=== PATIENT | female | born 1990 | race Caucasian/White ===

== ENCOUNTER 2019-08-13 09:28 | Emergency (ER) | payer SELFPAY ==
[2019-08-13 09:29] VITALS: BP 136/90
--- NOTE | 2019-08-13 10:52 | PHYS DOC ---
Adult General Chief Complaint Chief Complaint: ANXIETY/PANIC ATTACK HPI HPI 28 yo female presents via EMS with shortness of breath, chest tightness, and general anxiety. Patient believes she might be having an anxiety attack she's only had one previously. She was at work having a normal day when she began to feel more rapid breathing, shaky, and chest tightening. This led to further rapid breathing and a general sense of being scared. EMS was called. When the patient arrived, she was still expecting the symptoms. During my interview, she is feeling much better. She leaves this was just a panic attack. Her symptoms have resolved. She is still sleepy, but her other symptoms are gone. He has no other complaints. Review of Systems Review of Systems Constitutional: Denies fever or chills [] Eyes: Denies change in visual acuity, redness, or eye pain [] HENT: Denies nasal congestion or sore throat [] Respiratory: Denies cough or shortness of breath [] Cardiovascular: No additional information not addressed in HPI [] GI: Denies abdominal pain, nausea, vomiting, bloody stools or diarrhea [] : Denies dysuria or hematuria [] Musculoskeletal: Denies back pain or joint pain [] Integument: Denies rash or skin lesions [] Neurologic: Denies headache, focal weakness or sensory changes [] Endocrine: Denies polyuria or polydipsia [] All other systems were reviewed and found to be within normal limits, except as documented in this note. Physical Exam Physical Exam Constitutional: Well developed, well nourished, no acute distress, non-toxic appearance. [] HENT: Normocephalic, atraumatic, bilateral external ears normal, oropharynx moist, no oral exudates, nose normal. [] Eyes: PERRLA, EOMI, conjunctiva normal, no discharge. [] Neck: Normal range of motion, no tenderness, supple, no stridor. [] Cardiovascular:Heart rate regular rhythm, no murmur [] Lungs & Thorax: Bilateral breath sounds clear to auscultation [] Abdomen: Bowel sounds normal, soft, no tenderness, no masses, no pulsatile masses. [] Skin: Warm, dry, no erythema, no rash. [] Back: No tenderness, no CVA tenderness. [] Extremities: No tenderness, no cyanosis, no clubbing, ROM intact, no edema. [] Neurologic: Alert and oriented X 3, normal motor function, normal sensory function, no focal deficits noted. [] Psychologic: Affect normal, judgement normal, mood mildly anxious[] EKG EKG [] Radiology/Procedures Radiology/Procedures [] Course & Med Decision Making Course & Med Decision Making Pertinent Labs and Imaging studies reviewed. (See chart for details) Patient is feeling much better at this time. She tells me that all of her symptoms have gone away. She does not believe that she needs a workup. I have offered her to do labs and further evaluation if she would like, but she does not believe that necessary. She will decide to go home and rest. I believe that this is a reasonable thing to do. If her condition worsens she'll return to the emergency room. She is stable for discharge at this time. [] Dragon Disclaimer Dragon Disclaimer This electronic medical record was generated, in whole or in part, using a voice recognition dictation system. Departure Departure: Impression: Primary Impression: Encounter for medical screening examination Disposition: 01 HOME/RESIDENCE PRIOR TO ADM Condition: STABLE Referrals: DIANA MOSES (PCP) Patient Instructions: Anxiety and Panic Attacks, [id number] TING CHAHAL DO Aug 13, 2019 10:52
== END 2019-08-13 10:55 | disposition home or self-care (01) ==
LOC: ER 09:28
DX: F41.1 Generalized anxiety disorder (principal)
CPT/HCPCS: 99283

== ENCOUNTER 2020-01-17 21:26 | Emergency (ER) | payer OTHER ==
[~2020-01-17] VITALS: Ht 157.5 cm; Wt 68.5 kg
[2020-01-17] MEDS ORDERED: IV NORMAL SALINE 1,000ML 1,000 ML IV ONE (22:00)
--- NOTE | 2020-01-17 22:01 | PHYS DOC ---
Past History Past Medical History: No Pertinent History Past Surgical History: No Surgical History Alcohol Use: Rarely Drug Use: None General Adult EDM: Chief Complaint: LOWER EXT PAIN HPI: HPI: 29-year-old female presents with a left lower leg pain. She has had pain for 4 to 5 days. The patient has had varicose veins for her whole life. She noticed a protruding vein in the posterior of this knee a couple days ago. It is gotten more painful. It is tender to the touch. The patient is 6 weeks . She is also a smoker. She does not personally have a history of DVT, but her mother has had a DVT. Earlier this evening after she got out of her bathtub, the patient had her lower extremity feel numb for several minutes. It was a [id number] feeling. It faded on its own. She is here to make sure there is not a more serious problem. Review of Systems: Review of Systems: Constitutional: Denies fever or chills Eyes: Denies change in visual acuity HENT: Denies nasal congestion or sore throat Respiratory: Denies cough or shortness of breath Cardiovascular: Denies chest pain or edema GI: Denies abdominal pain, nausea, vomiting, bloody stools or diarrhea : Denies dysuria Musculoskeletal: Left lower leg pain Integument: Denies rash Neurologic: Denies headache, focal weakness or sensory changes Endocrine: Denies polyuria or polydipsia Lymphatic: Denies swollen glands Psychiatric: Denies depression or anxiety Heart Score: Risk Factors: Risk Factors: DM, Current or recent (<one month) smoker, HTN, HLP, family history of CAD, obesity. Risk Scores: Score 0 - 3: 2.5% MACE over next 6 weeks - Discharge Home Score 4 - 6: 20.3% MACE over next 6 weeks - Admit for Clinical Observation Score 7 - 10: 72.7% MACE over next 6 weeks - Early Invasive Strategies Current Medications: Current Meds: Current Medications Medications (Trade) Dose Ordered Sig/Laverne Start Time Stop Time Status Last Admin Dose Admin Sodium Chloride 1,000 ml @ 1,000 mls/hr 1X ONCE 01/17/20 22:00 01/17/20 22:59 UNV Allergies: Allergies: Allergies Coded Allergies Type Severity Reaction Last Updated Verified No Known Drug Allergies 01/17/20 No Physical Exam: PE: Constitutional: Well developed, well nourished, no acute distress, non-toxic appearance. [] HENT: Normocephalic, atraumatic, bilateral external ears normal, oropharynx moist, no oral exudates, nose normal. [] Eyes: PERRLA, EOMI, conjunctiva normal, no discharge. [] Neck: Normal range of motion, no tenderness, supple, no stridor. [] Cardiovascular:Heart rate regular rhythm, no murmur [] Lungs & Thorax: Bilateral breath sounds clear to auscultation [] Abdomen: Bowel sounds normal, soft, no tenderness, no masses, no pulsatile masses. [] Skin: 4 cm x 4 cm varicose vein complex of the left posterior knee, tender to palpation, no warmth or erythema. [] Back: No tenderness, no CVA tenderness. [] Extremities: No tenderness, no cyanosis, no clubbing, ROM intact, no edema. [] Neurologic: Alert and oriented X 3, normal motor function, normal sensory function, no focal deficits noted. [] Psychologic: Affect normal, judgement normal, mood normal. [] EKG: EKG: [] Radiology/Procedures: Radiology/Procedures: [] Impressions: Examination: Unilateral venous Doppler. Grayscale, color Doppler and spectral analysis were obtained. Indication: Leg swelling Findings: There is normal venous flow and compressibility of left common femoral vein, femoral vein, popliteal vein, and visualized proximal calf veins. Varicose veins are seen, grossly patent Impression: No evidence for deep vein thrombosis of left lower extremity from the level of the calf veins to the groins. Electronically signed by: Jeremiah Quinonez MD (01/17/2020 11:17 PM) [facility] DICTATED AND SIGNED BY: JEREMIAH QUINONEZ MD DATE: 01/17/20 2694 CC: TING CHAHAL DO; PCP,UNKNOWN ~ Course & Med Decision Making: Course & Med Decision Making Pertinent Labs and Imaging studies reviewed. (See chart for details) The patient's lower extremity ultrasound is negative for DVT. She does have varicose veins, but they appear to be patent. Her pain is likely due to these varicose veins. I have given her 2 mg of morphine and a [place] 02/01/2025 in the ER. I will discharge her with a prescription for [place] 5/325. The patient's labs are significant for hemoglobin of 10.6. I have no previous for comparison. Her potassium is 3.0. I have given her 40 mEq of oral replacement. She is stable for discharge at this time. [] Ubaldo Disclaimer: Ubaldo Disclaimer: This electronic medical record was generated, in whole or in part, using a voice recognition dictation system. Departure Departure: Impression: Primary Impression: Varicose vein of leg Qualified Codes: I83.812 - Varicose veins of left lower extremity with pain Additional Impression: Hypokalemia Disposition: HOME, SELF-CARE Condition: STABLE Referrals: PCP,UNKNOWN (PCP) Patient Instructions: Hypokalemia-Brief, Varicose Veins Scripts Hydrocodone Bit/Acetaminophen (NORCO 5-325 TABLET) 1 Each Tablet 1 TAB PO PRN Q6HRS PRN for PAIN, #14 TAB 0 Refills Prov: TING CHAHAL DO 01/17/20 TING CHAHAL DO Jan 17, 2020 22:00
[2020-01-17 22:41] LABS: BASO # 0.1 x10^3/uL (0.0-0.2); BASO % 1 % (0-3); EOS # 0.1 x10^3/uL (0.0-0.7); EOS % 1 % (0-3); HEMATOCRIT 31.1 % (36.0-47.0); HEMOGLOBIN 10.6 g/dL (12.0-15.5); LYMPH % 27 % (24-48); MEAN CORPUSCULAR HEMOGLOBIN 32 pg (25-35); MEAN CORPUSCULAR HGB CONC 34 g/dL (31-37); MEAN CORPUSCULAR VOLUME 95 fL (79-100); MONO # 0.6 x10^3/uL (0.0-1.1); MONO % 6 % (0-9); NEUT # 7.2 x10^3uL (1.8-7.7); NEUT % 65 % (31-73); PLATELET COUNT 261 x10^3/uL (140-400); RED BLOOD COUNT 3.28 x10^6/uL (3.50-5.40); RED CELL DISTRIBUTION WIDTH 13.2 % (11.5-14.5)
[2020-01-17] MEDS ORDERED: ONDANSETRON PF 4 MG/2 ML VIAL. IVP ONE (22:45)
[2020-01-17] MEDS ORDERED: MORPHINE SULFATE 2 MG/ML DISP.SYRIN. IV ONE (22:45)
[2020-01-17] MEDS ORDERED: HYDROcodone/APAP 5/325MG 1 TAB TABLET PO ONE (22:45)
[2020-01-17 22:54] LABS: ALBUMIN 2.9 g/dL (3.4-5.0); ALBUMIN/GLOBULIN RATIO 0.8 (1.0-1.7); CALCIUM 8.5 mg/dL (8.5-10.1); CREATININE 0.6 mg/dL (0.6-1.0); TOTAL BILIRUBIN 0.3 mg/dL (0.2-1.0); TOTAL PROTEIN 6.5 g/dL (6.4-8.2)
--- NOTE | 2020-01-17 23:20 | RAD ---
Examination: Unilateral venous Doppler. Grayscale, color Doppler and spectral analysis were obtained. Indication: Leg swelling Findings: There is normal venous flow and compressibility of left common femoral vein, femoral vein, popliteal vein, and visualized proximal calf veins. Varicose veins are seen, grossly patent Impression: No evidence for deep vein thrombosis of left lower extremity from the level of the calf veins to the groins. Electronically signed by: Jeremiah Quinonez MD (01/17/2020 11:17 PM) ROSY
[2020-01-17] MEDS ORDERED: HYDR-3165 PO (23:49)
[2020-01-17 23:51] LABS: BILIRUBIN,URINE NEG (NEG); CLARITY,URINE CLEAR; COLOR,URINE STRAW; GLUCOSE,URINE NEG (NEG)
[2020-01-17 23:52] LABS: BACTERIA,URINE FEW /HPF (0-FEW); NITRITE,URINE NEG (NEG); RBC,URINE 0 /HPF (0-2); SQUAMOUS EPITHELIAL CELL,UR FEW /LPF; UROBILINOGEN,URINE 0.2 mg/dL (0.2 mg/dL); WBC,URINE 0 /HPF (0-4)
[2020-01-18] MEDS ORDERED: POTASSIUM CHLORIDE 20 MEQ TABLET.ER. PO ONE
[2020-01-18 00:05] VITALS: BP 119/83
== END 2020-01-18 00:07 | disposition home or self-care (01) ==
LOC: ER 21:26
DX: O22.01 Varicose veins of lower extremity in pregnancy, first trimester (principal); E87.6 Hypokalemia; M79.662 Pain in left lower leg
CPT/HCPCS: 36415; 80053; 81001; 85025; 93971; 96374; 96375; 99284; J2270; J2405; J7030

== ENCOUNTER 2020-02-04 16:42 | Emergency (ER) | payer OTHER ==
[~2020-02-04] VITALS: Ht 157.5 cm; Wt 68.5 kg
[~2020-02-04 16:42] MED LIST: HYDR-3165 PO
--- NOTE | 2020-02-04 18:59 | PHYS DOC ---
Past History Past Medical History: No Pertinent History, Anemia Additional Past Medical Histor: mother has hx of DVTs Past Surgical History: No Surgical History Alcohol Use: Occasionally Drug Use: None General Adult EDM: Chief Complaint: ABDOMINAL PAIN IN HPI: HPI: See Notes by Dr. Joe santos on this pt. Prior visit on01/16 Patient is a 29 year old female who presents with above hx and complaints of abdomen pain in . Pt. left fore complete interview and labs and possible US. Review of Systems: Review of Systems: Constitutional: Denies fever or chills Eyes: Denies change in visual acuity HENT: Denies nasal congestion or sore throat Respiratory: Denies cough or shortness of breath Cardiovascular: Denies chest pain or edema GI: Complaints of abdominal pain, nausea and . Denies, vomiting, bloody stools or diarrhea : Denies dysuria Musculoskeletal: Denies back pain or joint pain Integument: Denies rash Neurologic: Denies headache, focal weakness or sensory changes Endocrine: Denies polyuria or polydipsia Lymphatic: Denies swollen glands Psychiatric: Denies depression or anxiety Heart Score: Risk Factors: Risk Factors: DM, Current or recent (<one month) smoker, HTN, HLP, family history of CAD, obesity. Risk Scores: Score 0 - 3: 2.5% MACE over next 6 weeks - Discharge Home Score 4 - 6: 20.3% MACE over next 6 weeks - Admit for Clinical Observation Score 7 - 10: 72.7% MACE over next 6 weeks - Early Invasive Strategies Allergies: Allergies: Allergies Coded Allergies Type Severity Reaction Last Updated Verified No Known Drug Allergies 01/17/20 No Physical Exam: PE: Left before re-exam Current Patient Data: Vital Signs: Vital Signs Date Time Temp Pulse Resp B/P (MAP) Pulse Ox O2 Delivery O2 Flow Rate FiO2 02/04/20 16:51 98.1 102 16 111/79 (90) 98 Room Air EKG: EKG: [] Radiology/Procedures: Radiology/Procedures: Planned US if Urine was positive- Pt. left before labs returned. [] Course & Med Decision Making: Course & Med Decision Making Pertinent Labs and Imaging studies reviewed. (See chart for details) Note Pt. left at approximately 1930 hrs. Did not want to wait on labs. Reported she felt better. Reportedly stated she would come back if she had in creased discomfort. Did not want to wait for US Impression: 1, Abdomen pain- generalized 2. B HCG= 54,683 3. Anemia HGB= 11.8 4. Mild Hypokalemia 3.1 5. Elevated AST 55, ALT 61 6. Drug Screen + ETOH 7. Blood Type is O + [] Dragon Disclaimer: Dragon Disclaimer: This electronic medical record was generated, in whole or in part, using a voice recognition dictation system. Departure Departure: Disposition: 01 HOME/RESIDENCE PRIOR TO ADM Condition: STABLE Referrals: PCP,NO (PCP) Dragon Disclaimer This chart was dictated in whole or in part using Voice Recognition software in a busy, high-work load, and often noisy Emergency Department environment. It may contain unintended and wholly unrecognized errors or omissions. Dragon Disclaimer This chart was dictated in whole or in part using Voice Recognition software in a busy, high-work load, and often noisy Emergency Department environment. It may contain unintended and wholly unrecognized errors or omissions. Dragon Disclaimer This chart was dictated in whole or in part using Voice Recognition software in a busy, high-work load, and often noisy Emergency Department environment. It may contain unintended and wholly unrecognized errors or omissions. AMISHA HUBBARD MD February 04, 2020 18:59
[2020-02-04] MEDS ORDERED: IV RINGERS SOLUTION,LACTATED 1,000 ML IV ONE (19:00)
[2020-02-04 19:24] LABS: CALCIUM 8.6 mg/dL (8.5-10.1); CREATININE 0.7 mg/dL (0.6-1.0); GFR 99.6; POTASSIUM 3.1 mmol/L (3.5-5.1)
[2020-02-04 19:31] LABS: ALBUMIN 3.2 g/dL (3.4-5.0); ALBUMIN/GLOBULIN RATIO 0.8 (1.0-1.7); HEMATOCRIT 33.9 % (36.0-47.0); HEMOGLOBIN 11.8 g/dL (12.0-15.5); RED BLOOD COUNT 3.56 x10^6/uL (3.50-5.40); RED CELL DISTRIBUTION WIDTH 13.4 % (11.5-14.5); TOTAL BILIRUBIN 0.4 mg/dL (0.2-1.0); TOTAL PROTEIN 7.3 g/dL (6.4-8.2); WHITE BLOOD COUNT 8.9 x10^3/uL (4.0-11.0)
[2020-02-04 19:33] VITALS: BP 110/78
[2020-02-04 20:02] LABS: BARBITURATES NEG (NEG); BENZODIAZEPINES NEG (NEG); CANNABINOIDS NEG (NEG); COCAINE NEG (NEG); METHADONE NEG (NEG); OPIATES NEG (NEG); PHENCYCLIDINE NEG (NEG)
[2020-02-04 20:04] LABS: AMPHETAMINE/METHAMPHETAMINE NEG (NEG)
[2020-02-04 20:09] LABS: CLARITY,URINE CLEAR; COLOR,URINE STRAW
[2020-02-04 20:10] LABS: BILIRUBIN,URINE NEG (NEG); GLUCOSE,URINE NEG (NEG); NITRITE,URINE NEG (NEG); UROBILINOGEN,URINE 0.2 mg/dL (0.2 mg/dL)
[2020-02-04 20:12] LABS: BACTERIA,URINE FEW /HPF (0-FEW); RBC,URINE 0 /HPF (0-2); SQUAMOUS EPITHELIAL CELL,UR MOD /LPF; WBC,URINE 0 /HPF (0-4)
== END 2020-02-04 19:30 | disposition left against medical advice (07) ==
LOC: ER 16:42
DX: O26.891 Other specified pregnancy related conditions, first trimester (principal); O99.011 Anemia complicating pregnancy, first trimester; O99.281 Endocrine, nutritional and metabolic diseases complicating pregnancy, first trimester; R10.9 Unspecified abdominal pain; R74.0 Nonspecific elevation of levels of transaminase and lactic acid dehydrogenase [LDH]; Z3A.00 Weeks of gestation of pregnancy not specified
CPT/HCPCS: 36415; 80053; 80307; 81001; 84702; 85027; 86900; 86901; 87086; 99283; J7120

== ENCOUNTER → 2020-03-03 | Outpatient (CLI) | payer OTHER ==
[2020-02-04 19:33] VITALS: BP 110/78
[2020-03-03 14:57] LABS: BASO % 0 % (0-3); EOS % 0 % (0-3); HEMATOCRIT 32.5 % (36.0-47.0); HEMOGLOBIN 10.9 g/dL (12.0-15.5); LYMPH # 1.3 x10^3/uL (1.0-4.8); LYMPH % 15 % (24-48); MEAN CORPUSCULAR HEMOGLOBIN 32 pg (25-35); MEAN CORPUSCULAR HGB CONC 34 g/dL (31-37); MEAN CORPUSCULAR VOLUME 96 fL (79-100); MONO # 0.5 x10^3/uL (0.0-1.1); MONO % 6 % (0-9); NEUT # 6.9 x10^3uL (1.8-7.7); NEUT % 79 % (31-73); PLATELET COUNT 213 x10^3/uL (140-400); RED BLOOD COUNT 3.38 x10^6/uL (3.50-5.40); RED CELL DISTRIBUTION WIDTH 13.4 % (11.5-14.5); WHITE BLOOD COUNT 8.7 x10^3/uL (4.0-11.0)
[2020-03-03 15:11] LABS: ALBUMIN 2.7 g/dL (3.4-5.0); ALBUMIN/GLOBULIN RATIO 0.7 (1.0-1.7); CALCIUM 8.9 mg/dL (8.5-10.1); CREATININE 0.6 mg/dL (0.6-1.0); POTASSIUM 3.3 mmol/L (3.5-5.1); TOTAL BILIRUBIN 0.4 mg/dL (0.2-1.0); TOTAL PROTEIN 6.6 g/dL (6.4-8.2)
[2020-03-04 14:33] LABS: FREE T4 0.9 ng/dL (0.76-1.46); THYROID STIM HORMONE (TSH) 1.322 uIU/mL (0.358-3.740)
[2020-03-04 19:07] LABS: RUBELLA IGG ANTIBODY <0.90 index (Immune >0.99)
== END | disposition home or self-care (01) ==
LOC: LAB 14:11
PROVIDERS: ATTEND Obstetrics & Gynecology
DX: Z34.92 Encounter for supervision of normal pregnancy, unspecified, second trimester (principal); Z3A.26 26 weeks gestation of pregnancy
CPT/HCPCS: 36415; 80053; 81220; 84439; 84443; 85025; 86592; 86695; 86696; 86703; 86762; 86787; 86803; 86900; 86901; 87340

== ENCOUNTER 2020-05-15 23:57 | Emergency (ER) | payer OTHER ==
[~2020-05-15] VITALS: Ht 157.5 cm; Wt 68.5 kg
[2020-05-16 00:06] VITALS: BP 132/83
--- NOTE | 2020-05-16 00:23 | PHYS DOC ---
Past History Past Medical History: No Pertinent History, Anemia Additional Past Medical Histor: mother has hx of DVTs Past Surgical History: No Surgical History Alcohol Use: Occasionally Drug Use: None General Adult EDM: Chief Complaint: OB/UTERINE CONTRACTIONS HPI: HPI: Patient is a 29-year-old female who is 38 weeks , estimated due date June 07, 2020, presented to ER today with abdominal pain and cramping. Denies any vaginal bleeding. Patient says this is her fourth . Patient claimed that she noticed some clear fluid coming out of her vagina earlier today. Patient denies any cough, no fever, no nausea vomiting. Patient denies any vaginal bleeding. Review of Systems: Review of Systems: Constitutional: Denies fever or chills Eyes: Denies change in visual acuity HENT: Denies nasal congestion or sore throat Respiratory: Denies cough or shortness of breath Cardiovascular: Denies chest pain or edema GI: Positive for abdominal pain, no nausea, vomiting, bloody stools or diarrhea : Positive for pelvic pain, no vaginal bleeding Musculoskeletal: Denies back pain or joint pain Integument: Denies rash Neurologic: Denies headache, focal weakness or sensory changes Endocrine: Denies polyuria or polydipsia Lymphatic: Denies swollen glands Psychiatric: Denies depression or anxiety Heart Score: Risk Factors: Risk Factors: DM, Current or recent (<one month) smoker, HTN, HLP, family history of CAD, obesity. Risk Scores: Score 0 - 3: 2.5% MACE over next 6 weeks - Discharge Home Score 4 - 6: 20.3% MACE over next 6 weeks - Admit for Clinical Observation Score 7 - 10: 72.7% MACE over next 6 weeks - Early Invasive Strategies Allergies: Allergies: Allergies Coded Allergies Type Severity Reaction Last Updated Verified No Known Drug Allergies 01/17/20 No Physical Exam: PE: Constitutional: Well developed, well nourished, IN MODERATE acute distress, non-toxic appearance. [] HENT: Normocephalic, atraumatic, bilateral external ears normal, oropharynx moist, no oral exudates, nose normal. [] Eyes: PERRLA, EOMI, conjunctiva normal, no discharge. [] Neck: Normal range of motion, no tenderness, supple, no stridor. [] Cardiovascular:Heart rate regular rhythm, no murmur [] Lungs & Thorax: Bilateral breath sounds clear to auscultation [] Abdomen: Bowel sounds normal, soft, tenderness AT SUPRAPUBID AREA, GRAVID UTERUS, no masses, no pulsatile masses. [] Skin: Warm, dry, no erythema, no rash. [] Back: No tenderness, no CVA tenderness. [] Extremities: No tenderness, no cyanosis, no clubbing, ROM intact, no edema. [] Neurologic: Alert and oriented X 3, normal motor function, normal sensory function, no focal deficits noted. [] Psychologic: Affect normal, judgement normal, mood normal. [] EXTERNAL VAGINAL EXAM: NO BLEEDING, NO FLUID LEAKING. EKG: EKG: [] Radiology/Procedures: Radiology/Procedures: [] Course & Med Decision Making: Course & Med Decision Making Pertinent Labs and Imaging studies reviewed. (See chart for details) Patient is a 21-year-old who is 38 weeks , who presents to ER today for pelvic pain, patient acting like she IS IN active labor, there is no bleeding noted, contact OB doctor on-call at [place], Dr. Coronado accepted patient for transfer there urgently. Ubaldo Disclaimer: Ubaldo Disclaimer: This electronic medical record was generated, in whole or in part, using a voice recognition dictation system. Departure Departure: Impression: Primary Impression: Abdominal pain during in third trimester Disposition: XFER SHT-TRM HOSP ([facility], accepted by Dr. CORONADO) Condition: STABLE Referrals: NARCISO KIM MD (PCP) Justification of Admission: Justification of Admission: Justification of Admission Dx: N/A SYDNI FRANKLIN DO May 16, 2020 00:22
== END 2020-05-16 00:20 | disposition left against medical advice (07) ==
LOC: ER 23:57
DX: O26.891 Other specified pregnancy related conditions, first trimester (principal); R10.2 Pelvic and perineal pain; O99.013 Anemia complicating pregnancy, third trimester; Z3A.38 38 weeks gestation of pregnancy
CPT/HCPCS: 99285

== ENCOUNTER 2020-09-21 15:13 | Emergency (ER) | payer OTHER ==
[~2020-09-21] VITALS: Ht 154.9 cm; Wt 56.4 kg
[2020-09-21 15:30] VITALS: BP 115/78
--- NOTE | 2020-09-21 16:00 | RAD ---
Three-view left hand study Clinical indications: Finger slammed in freezer door. Pain. FINDINGS: No acute fracture or dislocation or lytic process is seen. No radiopaque foreign body is ev ident. Pression: No acute osseous abnormality. Electronically signed by: Jay Patricio MD (09/21/2020 3:57 PM) [id number]
--- NOTE | 2020-09-21 16:24 | PHYS DOC ---
Past History Past Medical History: No Pertinent History Additional Past Medical Histor: mother has hx of DVTs (DIMTIRI GERMAN APRN) Past Surgical History: No Surgical History (DIMITRI GERMAN APRN) Alcohol Use: None Drug Use: None (DIMITRI GERMAN APRN) General Adult EDM: Chief Complaint: FINGER INJURY HPI: HPI: Patient is a 30-year-old female who presents with left-sided middle finger pain. Patient states that she accidentally slammed her finger in her deep freeze. Patient is rating the pain 8 out of 10. Patient reports taking Tylenol with little relief. (DIMITRI GERMAN APRN) Review of Systems: Review of Systems: Constitutional: Denies fever or chills Eyes: Denies change in visual acuity HENT: Denies nasal congestion or sore throat Respiratory: Denies cough or shortness of breath Cardiovascular: Denies chest pain or edema GI: Denies abdominal pain, nausea, vomiting, bloody stools or diarrhea : Denies dysuria Musculoskeletal: Denies back pain or joint pain Integument: Denies rash Neurologic: Denies headache, focal weakness or sensory changes Endocrine: Denies polyuria or polydipsia Lymphatic: Denies swollen glands Psychiatric: Denies depression or anxiety (DIMITRI GERMAN APRN) Allergies: Allergies: Allergies Coded Allergies Type Severity Reaction Last Updated Verified No Known Drug Allergies 01/17/20 No (DIMITRI GERMAN APRN) Physical Exam: PE: Constitutional: Well developed, well nourished, no acute distress, non-toxic appearance. [] HENT: Normocephalic, atraumatic, bilateral external ears normal, oropharynx moist, no oral exudates, nose normal. [] Eyes: PERRLA, EOMI, conjunctiva normal, no discharge. [] Neck: Normal range of motion, no tenderness, supple, no stridor. [] Cardiovascular:Heart rate regular rhythm, no murmur [] Lungs & Thorax: Bilateral breath sounds clear to auscultation [] Abdomen: Bowel sounds normal, soft, no tenderness, no masses, no pulsatile masses. [] Skin: Warm, dry, no erythema, no rash. [] Back: No tenderness, no CVA tenderness. [] Extremities: Tenderness to left middle finger, no cyanosis, no clubbing, ROM intact, no edema. [] Neurologic: Alert and oriented X 3, normal motor function, normal sensory function, no focal deficits noted. [] Psychologic: Affect normal, judgement normal, mood normal. [] (DIMITRI GERMAN APRN) Current Patient Data: Vital Signs: Vital Signs Date Time Temp Pulse Resp B/P (MAP) Pulse Ox O2 Delivery O2 Flow Rate FiO2 09/21/20 15:30 97.7 76 20 115/78 (90) 98 Room Air (DIMITRI GERMAN APRN) EKG: EKG: [] (DIMITRI GERMAN APRN) Radiology/Procedures: Radiology/Procedures: []Three-view left hand study Clinical indications: Finger slammed in freezer door. Pain. FINDINGS: No acute fracture or dislocation or lytic process is seen. No radiopaque foreign body is evident. Pression: Electronically signed by: Jay Patricio MD (09/21/2020 3:57 PM) [id number] (DIMITRI GERMAN APRN) Heart Score: Risk Factors: Risk Factors: DM, Current or recent (<one month) smoker, HTN, HLP, family history of CAD, obesity. Risk Scores: Score 0 - 3: 2.5% MACE over next 6 weeks - Discharge Home Score 4 - 6: 20.3% MACE over next 6 weeks - Admit for Clinical Observation Score 7 - 10: 72.7% MACE over next 6 weeks - Early Invasive Strategies (DIMITRI GERMAN APRN) Course & Med Decision Making: Course & Med Decision Making Pertinent Labs and Imaging studies reviewed. (See chart for details) XRAY of finger to r/o fracture. Xray:No acute osseous abnormality. Patient DCD home. Finger splint placed for support. [] (DIMITRI GERMAN APRN) Course & Med Decision Making I have participated in the care of this patient and I have reviewed and agree wi th all pertinent clinical information above including history, exam, and recommendations. (LIAM HAWKINS MD) Dragon Disclaimer: Dragsoto Disclaimer: This electronic medical record was generated, in whole or in part, using a voice recognition dictation system. (DIMITRI GERMAN APRN) Departure Departure: Impression: Primary Impression: Finger sprain Disposition: DC HOME SELF CARE/HOMELESS Condition: GOOD Referrals: PCP,NO (PCP) Patient Instructions: Finger Sprain, [id number] Additional Instructions: EMERGENCY DEPARTMENT GENERAL DISCHARGE INSTRUCTIONS Thank you for coming to [facility] (ED) today and trusting us with you care. We trust that you had a positivie experience in our Emergency Department. If you wish to speak to the department management, you may call the director at [phone]. YOUR FOLLOW UP INSTRUCTIONS ARE FOLLOWS: 1. Do you have a private Doctor? If you do not have a private doctor, please ask for a resource list of physicians or clinics that may be able to assist you with f ollow up care. 2. The Emergency Physician has interpreted your x-rays. The X-Ray specialist will also review them. If there is a change in the findings, you will be notified in 48 hours when at all possible. 3. A lab test or culture has been done, your results will be reviewed and you will be notified if you need a change in treatment. ADDITIONAL INSTRUCTIONS AND INFORMATION: 1. Your care today has been supervised by a physician who is specially trained in emergency care. Many problems require more than one evaluation for a complete diagnosis and treatment. We recommend that you schedule your follow up appointment as recommended to ensure complete treatment of you illness or injury. If you are unable to obtain follow up care and continue to have a problem, or if your condition worsens, we recommend that you return to the ED. 2. We are not able to safely determine your condition over the phone nor are we able to give sound medical advice over the phone. For these safety reasons, if you call for medical advice we will ask you to come to the ED for further evaluation. 3. If you have any questions regarding these discharge instructions please call the ED at [phone]. SAFETY INFORMATION: In the interest of safety, wellness, and injury prevention; we encourage you to wear your sealbelt, if you smoke; quite smoking, and we encourage family to use a protect jada helmet for bicycling and other sporting events that present an increased risk for head injury. IF YOUR SYMPTOMS WORSEN OR NEW SYMPTOMS DEVELOP, OR YOU HAVE CONCERNS ABOUT YOUR CONDITION; OR IF YOUR CONDITION WORSENS WHILE YOU ARE WAITING FOR YOUR FOLLOW UP APPOINTMENT; EITHER CONTACT YOUR PRIMARY CARE DOCTOR, THE PHYSICIAN WHOSE NAME AND NUMBER YOU WERE GIVEN, OR RETURN TO THE ED IMMEDIATELY. DIMITRI GERMAN APRN Sep 21, 2020 16:23 LIAM HAWKINS MD Sep 22, 2020 13:26
== END 2020-09-21 16:30 | disposition home or self-care (01) ==
LOC: ER 15:13
DX: S63.693A Other sprain of left middle finger, initial encounter (principal); W23.0XXA Caught, crushed, jammed, or pinched between moving objects, initial encounter; Y93.89 Activity, other specified; Y92.89 Other specified places as the place of occurrence of the external cause; Y99.8 Other external cause status
CPT/HCPCS: 29130; 73130; 99283

== ENCOUNTER 2021-07-02 16:12 | Emergency (ER) | payer OTHER ==
[~2021-07-02] VITALS: Ht 154.9 cm; Wt 51.2 kg
[2021-07-02 16:48] VITALS: BP 108/63
[2021-07-02] MEDS ORDERED: CLIN-95 PO (17:25)
--- NOTE | 2021-07-02 17:27 | PHYS DOC ---
Past History Past Medical History: No Pertinent History Additional Past Medical Histor: mother has hx of DVTs (DIMITRI GERMAN APRN) Past Surgical History: No Surgical History (DIMITRI GERMAN APRN) Alcohol Use: None Drug Use: None (DIMITRI GERMAN APRN) General Adult EDM: Chief Complaint: INSECT BITE HPI: HPI: Patient is a 30-year-old female presents with insect bite to left ponce. Patient states she noticed bite yesterday. Bite is red, swollen and warm. Denies fever. Rating pain 4/10. States that pain is worse when she is sitting. Denies medical history. (DIMITRI GERMAN APRN) Review of Systems: Review of Systems: Constitutional: Denies fever or chills Eyes: Denies change in visual acuity HENT: Denies nasal congestion or sore throat Respiratory: Denies cough or shortness of breath Cardiovascular: Denies chest pain or edema GI: Denies abdominal pain, nausea, vomiting, bloody stools or diarrhea : Denies dysuria Musculoskeletal: Denies back pain or joint pain Integument: Denies rash Neurologic: Denies headache, focal weakness or sensory changes Endocrine: Denies polyuria or polydipsia Lymphatic: Denies swollen glands Psychiatric: Denies depression or anxiety (DIMITRI GERMAN APRN) Allergies: Allergies: Allergies Coded Allergies Type Severity Reaction Last Updated Verified No Known Drug Allergies 01/17/20 No (DIMITRI GERMAN APRN) Physical Exam: PE: Constitutional: Well developed, well nourished, no acute distress, non-toxic appearance. [] HENT: Normocephalic, atraumatic, bilateral external ears normal, oropharynx moist, no oral exudates, nose normal. [] Eyes: PERRLA, EOMI, conjunctiva normal, no discharge. [] Neck: Normal range of motion, no tenderness, supple, no stridor. [] Cardiovascular:Heart rate regular rhythm, no murmur [] Lungs & Thorax: Bilateral breath sounds clear to auscultation [] Abdomen: Bowel sounds normal, soft, no tenderness, no masses, no pulsatile masses. [] Skin: Warm, red, swollen insect bite to left ponce Back: No tenderness, no CVA tenderness. [] Extremities: Left ponce tenderness, ROM intact, edema Neurologic: Alert and oriented X 3, normal motor function, normal sensory function, no focal deficits noted. [] Psychologic: Affect normal, judgement normal, mood normal. [] (DIMITRI GERMAN APRN) Current Patient Data: Vital Signs: Vital Signs Date Time Temp Pulse Resp B/P (MAP) Pulse Ox O2 Delivery O2 Flow Rate FiO2 07/02/21 16:48 97.5 103 16 108/63 (78) 100 Room Air (DIMITRI GERMAN APRN) EKG: EKG: [] (DIMITRI GERMAN APRN) Radiology/Procedures: Radiology/Procedures: [] (DIMITRI GERMAN APRN) Heart Score: C/O Chest Pain: No Risk Factors: Risk Factors: DM, Current or recent (<one month) smoker, HTN, HLP, family history of CAD, obesity. Risk Scores: Score 0 - 3: 2.5% MACE over next 6 weeks - Discharge Home Score 4 - 6: 20.3% MACE over next 6 weeks - Admit for Clinical Observation Score 7 - 10: 72.7% MACE over next 6 weeks - Early Invasive Strategies (DIMITRI GERMAN APRN) Course & Med Decision Making: Course & Med Decision Making Pertinent Labs and Imaging studies reviewed. (See chart for details) [] 30-year-old female presents with insect bite to left ponce. Bite is red, swollen and warm to the touch. Patient is rating pain 4/10. Patient given 600 mg Motrin. (DIMITRI GERMAN APRN) Dragon Disclaimer: Dragon Disclaimer: This electronic medical record was generated, in whole or in part, using a voice recognition dictation system. (DIMITRI GERMAN APRN) Attending Co-Sign The patient was seen and interviewed as well as examined at the bedside. The chart was reviewed. The case was discussed. Agree with the plan of care. (TING CHAHAL DO) Departure Departure: Impression: Primary Impression: Insect bite Qualified Codes: S80.862A - Insect bite (nonvenomous), left lower leg, initial encounter; W57.XXXA - Bitten or stung by nonvenomous insect and other nonvenomous arthropods, initial encounter Disposition: HOME / SELF CARE / HOMELESS Condition: STABLE Referrals: PCP,NO (PCP) Patient Instructions: Insect Bite, [id number] Additional Instructions: You are seen emergency room for insect bite to your left ponce. I am sending home prescription for an antibiotic. Make sure you take it in full and as instructed. Ibuprofen and Tylenol at home for pain please return to emergency room if symptoms get worse or you have further concerns. Otherwise follow-up with your PCP on Monday. EMERGENCY DEPARTMENT GENERAL DISCHARGE INSTRUCTIONS Thank you for coming to [facility] (ED) today and trusting us with you care. We trust that you had a positivie experience in our Emergency Department. If you wish to speak to the department management, you may call the director at [phone]. YOUR FOLLOW UP INSTRUCTIONS ARE FOLLOWS: 1. Do you have a private Doctor? If you do not have a private doctor, please ask for a resource list of physicians or clinics that may be able to assist you with follow up care. 2. The Emergency Physician has interpreted your x-rays. The X-Ray specialist will also review them. If there is a change in the findings, you will be notified in 48 hours when at all possible. 3. A lab test or culture has been done, your results will be reviewed and you will be notified if you need a change in treatment. ADDITIONAL INSTRUCTIONS AND INFORMATION: 1. Your care today has been supervised by a physician who is specially trained in emergency care. Many problems require more than one evaluation for a complete diagnosis and treatment. We recommend that you schedule your follow up appointment as recommended to ensure complete treatment of you illness or injury. If you are unable to obtain follow up care and continue to have a problem, or if your condition worsens, we recommend that you return to the ED. 2. We are not able to safely determine your condition over the phone nor are we able to give sound medical advice over the phone. For these safety reasons, if you call for medical advice we will ask you to come to the ED for further evaluation. 3. If you have any questions regarding these discharge instructions please call the ED at [phone]. SAFETY INFORMATION: In the interest of safety, wellness, and injury prevention; we encourage you to wear your sealbelt, if you smoke; quite smoking, and we encourage family to use a protective helmet for bicycling and other sporting events that present an increased risk for head injury. IF YOUR SYMPTOMS WORSEN OR NEW SYMPTOMS DEVELOP, OR YOU HAVE CONCERNS ABOUT YOUR CONDITION; OR IF YOUR CONDITION WORSENS WHILE YOU ARE WAITING FOR YOUR FOLLOW UP BRENDA OINTMENT; EITHER CONTACT YOUR PRIMARY CARE DOCTOR, THE PHYSICIAN WHOSE NAME AND NUMBER YOU WERE GIVEN, OR RETURN TO THE ED IMMEDIATELY. Scripts Clindamycin Hcl (CLINDAMYCIN HCL) 300 Mg Capsule 1 CAP PO TID for abscess for 7 Days, #21 CAP Prov: DIMITRI GERMAN APRN 07/02/21 DIMITRI GERMAN APRN Jul 02, 2021 17:27 TING CHAHAL DO Jul 03, 2021 06:39
[2021-07-02] MEDS: IBUPROFEN 600 MG TABLET. PO ONE (17:30)
== END 2021-07-02 17:39 | disposition home or self-care (01) ==
LOC: ER 16:12
DX: S80.862A Insect bite (nonvenomous), left lower leg, initial encounter (principal); W57.XXXA Bitten or stung by nonvenomous insect and other nonvenomous arthropods, initial encounter; Y93.89 Activity, other specified; Y92.89 Other specified places as the place of occurrence of the external cause; Y99.8 Other external cause status
CPT/HCPCS: 99283-25

== ENCOUNTER 2021-09-15 13:13 | Emergency (ER) | payer OTHER ==
[~2021-09-15] VITALS: Ht 154.9 cm; Wt 51.2 kg
[~2021-09-15 13:13] MED LIST changes: +CLIN-95 PO
[2021-09-15 13:23] VITALS: BP 110/66
--- NOTE | 2021-09-15 13:30 | PHYS DOC ---
Past History Past Medical History: No Pertinent History Additional Past Medical Histor: mother has hx of DVTs Past Surgical History: No Surgical History Alcohol Use: None Drug Use: None Adult General Chief Complaint Chief Complaint: ABDOMINAL PAIN HPI HPI Patient is a 31yo femalre presenting via EMS for left sided chest wall pain. Onset was just before arrival at work without obvious injury. States she works at [employer] and had no trauma etc. Nothing known makes pain better or worse. She has not taken anything for pain. She does not elaborate any more when trying to obtain history. She denies tobacco, ETOH or drug use. No SI/HI, she feels safe at home, denies any domestic violence or other issues Review of Systems Review of Systems Fourteen body systems of review of systems have been reviewed. See HPI for pertinent positives and negative responses, other gregory all other systems are negative, non-pertinent or non-contributory Allergies Allergies Allergies Coded Allergies Type Severity Reaction Last Updated Verified No Known Drug Allergies 01/17/20 No Physical Exam Physical Exam Constitutional: Well developed, well nourished, no acute distress, non-toxic appearance. HENT: Normocephalic, atraumatic, bilateral external ears normal, oropharynx moist, no oral exudates, nose normal. Eyes: PERRLA, EOMI, conjunctiva normal, no discharge. Neck: Normal range of motion, no tenderness, supple, no stridor. Cardiovascular: Heart rate regular, sinus rhythm, no murmurs rubs or gallops Lungs & Thorax: Bilateral breath sounds clear to auscultation Abdomen: Bowel sounds normal, soft, no tenderness, no masses, no pulsatile masses. Nonsurgical abdomen, no peritoneal signs Skin: Warm, dry, no erythema, no rash. Back: No tenderness, no CVA tenderness. Extremities: No tenderness, no cyanosis, no clubbing, ROM intact, no edema. Neurologic: Alert and oriented X 3, grossly normal motor & sensory function, no focal deficits noted. Psychologic: Tearful affect, depressed mood EKG EKG [] Radiology/Procedures Radiology/Procedures [] Heart Score C/O Chest Pain: No Risk Factors: Risk Factors: DM, Current or recent (<one month) smoker, HTN, HLP, family history of CAD, obesity. Risk Scores: Risk Factors: DM, Current or recent (<one month) smoker, HTN, HLP, family history of CAD, obesity. Course & Med Decision Making Course & Med Decision Making ABCs unremarkable. HPI limited, physical exam non-concerning. Tylenol given I discussed with otherwise well appearing patient what more we can do while in ER setting, I offered UA and test, she states she just wants to go home. I am unsure why she came here regardless, I discussed with patient return precautions and fact that we will always be here to care for her if anything were to change or she wanted to come back for repeat evaluation Ubaldo Disclaimer Dragsoto Disclaimer This electronic medical record was generated, in whole or in part, using a voice recognition dictation system. Departure Departure: Impression: Primary Impression: Left-sided chest wall pain Disposition: HOME / SELF CARE / HOMELESS Condition: STABLE Referrals: PCP,DIANA (PCP) Additional Instructions: As discussed prior to ER departure, your vitals and physical exam were nonconcerning for any emergent or surgical issues. You did not participate in further examination while in ER setting or allow us to pursue other diagnostic studies and so, decision was made to discharge you. Please call your primary care physician immediately after ER departure to review your ER visit today and follow-up on your presenting symptoms. You should utilize Tylenol as needed for pain control with continued supportive care practices advised. Any concerning signs or symptoms present prior to outpatient follow-up please do not hesitate to come back for repeat evaluation. It was a pleasure to take care of you and I wish you the best going forward DESTINI AGEE DO Sep 15, 2021 13:30
[2021-09-15] MEDS ORDERED: ACETAMINOPHEN 325 MG TABLET PO ONE (14:00)
== END 2021-09-15 14:28 | disposition home or self-care (01) ==
LOC: ER 13:13
DX: R07.89 Other chest pain (principal)
CPT/HCPCS: 99283